=== PATIENT | male | born 1975 | race Caucasian/White ===

== ENCOUNTER 2017-10-23 08:17 | Emergency (ER) | payer BC ==
--- NOTE | 2017-10-23 08:28 | EDM.PDOC ---
ED HPI GENERAL MEDICAL PROBLEM - General Chief Complaint: Respiratory Problem Stated Complaint: COUGH Time Seen by Provider: 10/23/17 08:27 Source of Information: Reports: Patient - History of Present Illness INITIAL COMMENTS - FREE TEXT/NARRATIVE: HISTORY AND PHYSICAL: History of present illness: [Patient with some early COPD changes and significant smoking history presents with persistent cough over the last 2 months, on initial exam he has some diminished breath sounds on the right compared to left no fever nausea vomiting diarrhea constipation chest pain shortness breath headache dizziness palpitation about a urine symptoms ] Patient has steroid inhaler as well as albuterol he is noncompliant with these continues to smoke 1 pack daily Review of systems: As per history of present illness and below otherwise all systems reviewed and negative. Past medical history: As per history of present illness and as reviewed below otherwise noncontributory. Surgical history: As per history of present illness and as reviewed below otherwise noncontributory. Social history: No reported history of drug or alcohol abuse. Family history: As per history of present illness and as reviewed below otherwise noncontributory. Physical exam: HEENT: Atraumatic, normocephalic, pupils reactive, negative for conjunctival pallor or scleral icterus, mucous membranes moist, throat clear, neck supple, nontender, trachea midline. Lungs: Clear to auscultation, breath sounds equal bilaterally, chest nontender. Heart: S1S2, regular, negative for clicks, rubs, or JVD. Abdomen: Soft, nondistended, nontender. Negative for masses or hepatosplenomegaly. Negative for costovertebral tenderness. Pelvis: Stable nontender. Genitourinary: Deferred. Rectal: Deferred. Extremities: Atraumatic, negative for cords or calf pain. Neurovascular unremarkable. Neuro: Awake, alert, oriented. Cranial nerves II through XII unremarkable. Cerebellum unremarkable. Motor and sensory unremarkable throughout. Exam nonfocal. Diagnostics: [Influenza Chest 2 views ] Therapeutics: [Solu-Medrol 125 mg IM DuoNeb ] Azithromycin Provided albuterol nebs as he has other medications Impression: [Cough]/bronchitis History of COPD on inhalers Medication noncompliance Definitive disposition and diagnosis as appropriate pending reevaluation and review of above. - Related Data Allergies Allergy/AdvReac Type Severity Reaction Status Date / Time bee stings Allergy Swelling Uncoded 10/23/17 08:29 Home Meds: Home Meds Losartan [Cozaar] 100 mg PO DAILY 10/23/17 [History] Past Medical History Cardiovascular History: Reports: High Cholesterol, Hypertension Respiratory History: Reports: Other (See Below) Other Respiratory History: chronic cough Gastrointestinal History: Reports: GERD, Other (See Below) Other Gastrointestinal History: ulceration Musculoskeletal History: Reports: Other (See Below) Other Musculoskeletal History: chronic leg pain Social & Family History - Family History Family Medical History: Noncontributory - Tobacco Use Smoking Status *Q: Current Every Day Smoker Years of Tobacco use: 25 Packs/Tins Daily: 1 - Caffeine Use Caffeine Use: Reports: Soda, Tea - Recreational Drug Use Recreational Drug Use: No ED ROS GENERAL - Review of Systems Review Of Systems: ROS reveals no pertinent complaints other than HPI. ED EXAM, GENERAL - Physical Exam Exam: See Below Course - Vital Signs Last Recorded V/S: Last Vital Signs Temp 97.8 F 10/23/17 08:26 Pulse 90 10/23/17 08:26 Resp 20 10/23/17 08:26 BP 150/83 H 10/23/17 08:26 Pulse Ox 94 L 10/23/17 08:26 - Orders/Labs/Meds Orders: Active Orders 24 hr Category Date Time Status RT Aerosol Therapy [RC] ASDIRECTED Care 10/23/17 09:12 Active Chest 2V [CR] Stat Exams 10/23/17 08:20 Taken Meds: Medications Discontinued Medications Generic Name Dose Route Start Last Admin Trade Name Bobbyq PRN Reason Stop Dose Admin Albuterol/Ipratropium 3 ml 10/23/17 09:12 10/23/17 09:24 Duoneb 3.0-0.5 Mg/3 Ml NEB 10/23/17 09:13 3 ml ONETIME ONE Administration Methylprednisolone Sodium Succinate 125 mg 10/23/17 09:12 10/23/17 09:20 Solu-Medrol IM 10/23/17 09:13 125 mg ONETIME ONE Administration Departure - Departure Time of Disposition: 10:02 Disposition: Home, Self-Care 01 Condition: Good Clinical Impression: Bronchitis - Discharge Information Referrals: Karime Okeefe [Primary Care Provider] - Forms: ED Department Discharge Additional Instructions: Continue medications as directed Smoking cessation strongly encouraged Follow-up with your primary care for continued management Return if symptoms persist or worsen or new concerning symptoms develop The following information is given to patients seen in the emergency department who are being discharged to home. This information is to outline your options for follow-up care. We provide all patients seen in our emergency department with a follow-up referral. The need for follow-up, as well as the timing and circumstances, are variable depending upon the specifics of your emergency department visit. If you don't have a primary care physician on staff, we will provide you with a referral. We always advise you to contact your personal physician following an emergency department visit to inform them of the circumstance of the visit and for follow-up with them and/or the need for any referrals to a consulting specialist. The emergency department will also refer you to a specialist when appropriate. This referral assures that you have the opportunity for follow-up care with a specialist. All of these measure are taken in an effort to provide you with optimal care, which includes your follow-up. Under all circumstances we always encourage you to contact your private physician who remains a resource for coordinating your care. When calling for follow-up care, please make the office aware that this follow-up is from your recent emergency room visit. If for any reason you are refused follow-up, please contact the [facility] emergency department at and asked to speak to the emergency department charge nurse. - My Orders Last 24 Hours: My Active Orders 10/23/17 08:20 Chest 2V [CR] Stat 10/23/17 09:12 RT Aerosol Therapy [RC] ASDIRECTED - Assessment/Plan Last 24 Hours: My Active Orders 10/23/17 08:20 Chest 2V [CR] Stat 10/23/17 09:12 RT Aerosol Therapy [RC] ASDIRECTED
[2017-10-23] MEDS ORDERED: Albuterol/Ipratropium 3.0-0.5 MG/3 ML Neb Soln NEB ONE (09:12)
[2017-10-23] MEDS ORDERED: methylPREDNISolone Sodium Succinate 125 MG/2 ML SDV IM ONE (09:12)
[2017-10-23 10:20] VITALS: BP 128/79
--- NOTE | 2017-10-25 17:04 | CR ---
EXAM DATE: 10/23/17 PATIENT'S AGE: 42 Patient: MANAN ALVARADO Facility: [place], [place] Site . Site : [id number] Study: XRay Chest [id number]/20/2018 8:53:11 AM Ordering Physician: Doctor Guillen Final Report: INDICATION: CHRONIC X 2 YEARS ACCORDING TO PATIENT COUGH CURRENTLY INDICATION: Cough. TECHNIQUE: Two-view. COMPARISON: 03/23/2017. FINDINGS: Heart size is stable and within normal limits. The lungs demonstrate no acute infiltrate. When compared to the prior study there has been little change. IMPRESSION: No significant infiltrate is identified. Dictated by Adryan Mcnamara MD @ 10/23/2017 9:17:19 AM Dictated by: Adryan Mcnamara MD @ 10/23/2017 09:17:28 (Electronic Signature) Report Signed by Proxy. [email or web address]
== END 2017-10-23 10:17 | disposition home or self-care (01) ==
LOC: MW.ED 08:17
DX: J44.9 Chronic obstructive pulmonary disease, unspecified (principal); E78.00 Pure hypercholesterolemia, unspecified; I10 Essential (primary) hypertension; F17.210 Nicotine dependence, cigarettes, uncomplicated; Z91.030 Bee allergy status; Z79.899 Other long term (current) drug therapy; Z79.51 Long term (current) use of inhaled steroids; Z91.14 Patient's other noncompliance with medication regimen
CPT/HCPCS: 71046; 87804; 94640; 96372; 99283; J2930

== ENCOUNTER 2023-09-30 17:16 | Emergency (ER) | payer SELFPAY ==
[2023-09-30] MEDS ORDERED: Acetaminophen/oxyCODONE 325-5 MG Tab PO ONE (18:00)
[2023-09-30] MEDS ORDERED: Acetaminophen/HYDROcodone 325-5 MG Tab PO ONE (18:01)
[2023-09-30 19:20] VITALS: BP 176/91; PULSE 81
== END 2023-09-30 19:20 | disposition home or self-care (01) ==
LOC: MW.ED 17:16
DX: S83.91XA Sprain of unspecified site of right knee, initial encounter (principal); I10 Essential (primary) hypertension; Z91.030 Bee allergy status; W00.0XXA Fall on same level due to ice and snow, initial encounter
CPT/HCPCS: 73562; 99283; A9270

== ENCOUNTER 2024-03-31 21:33 | Emergency (ER) | payer MEDICAID ==
[2024-03-31 21:42] VITALS: BP 166/93; PULSE 74
== END 2024-03-31 23:36 | disposition home or self-care (01) ==
LOC: MW.ED 21:33
DX: M25.531 Pain in right wrist (principal); F17.210 Nicotine dependence, cigarettes, uncomplicated; I10 Essential (primary) hypertension; Z86.16 Personal history of COVID-19; Z91.030 Bee allergy status; Z75.8 Other problems related to medical facilities and other health care
CPT/HCPCS: 73110-26-RT; 73110-RT; 99283